=== PATIENT | female | born 1985 | race Caucasian/White ===

== ENCOUNTER → 2017-07-25 15:09 | Outpatient (CLI) | payer MEDICAID, SELFPAY ==
[2017-07-25 16:49] LABS: Hemoglobin A1c 4.8 % (4.2-6.3)
[2017-07-25 16:50] LABS: Pregnancy, Serum, hCG Quali. NEGATIVE Negative (0-9 Nonpreg)
[2017-07-25 16:54] LABS: Free T3 2.5 pg/mL (2.18-3.98); Luteinizing Hormone 4.8 mIU/mL; Prolactin 2.2 ng/mL; T4 Free Direct 0.83 ng/dL (0.76-1.46); Thyroid Stim Hormone (TSH) 1.29 uIU/mL (0.358-3.74)
== END ==
PROVIDERS: Visit Provider Obstetrics & Gynecology
DX: N92.6 Irregular menstruation, unspecified (principal)
CPT/HCPCS: 36415; 83001; 83002; 83036; 84146; 84439; 84443; 84481; 84703

== ENCOUNTER 2017-09-13 09:24 | Day surgery (SDC) | payer MEDICAID, SELFPAY ==
[2017-09-07 11:34] LABS: Partial Thromboplast Time 32.1 Seconds (24.1-36.2); Prothrombin Time (Protime)PT. 13.2 SECONDS (11.7-14.9)
[2017-09-07 11:39] LABS: Hematocrit 37.4 % (37-47); Hemoglobin 13.2 g/dl (12.0-15.0); Mean Corp Hgb Conc 35.3 g/gl (32-36); Mean Corpuscular Volume 90.8 fL (81-99); Mean Platelet Vol. 9.5 fl (6.2-12.0); Platelet Count 309 K/mm3 (150-450); RBC Distribution Width CV 12.4 % (11.6-14.6); RBC Distribution Width SD 40.8 fl (35.1-43.9); Red Blood Count 4.12 M/mm3 (4.2-5.4); Scan Indicated on CBC? Y/N NO; White Blood Count 9.4 K/mm3 (4.4-11.0)
[2017-09-07 11:54] LABS: Pregnancy, Serum, hCG Quali. NEGATIVE Negative (0-9 Nonpreg)
[2017-09-13 09:49] LABS: Internal QC Validated? YES +Cl - CLEAR BKGD; Pregnancy, Urine Negative Negative
[2017-09-13 09:51] VITALS: BP 113/59; PULSE 67; RESP 16; TEMP 36.4; O2SAT 97; BMI 37.4
--- NOTE | 2017-09-13 11:05 | FALS_PTH ---
PATIENT: ALO CAMACHO LOC: [facility] [place][id number] AGE/SX: 31/F ROOM: RE09/13/[address]: Dr. Bandar Eden MD : [id number] BED: DIS: 09/13/2017 SPEC #: [id number] RECD: 09/13/17 12:35 STATUS: SOFI [place] #: [id number] FRANCISCO: 09/13/17 11:[address]: Bandar Eden DEPT: SURGICAL PATHOLOGY RECD BY: Chaka Murphy ENTERED: 09/13/17 13:18 SP TYPE: FALL TUBES OTHR DR: Dr. Justin Black MD Tissues: Fallopian tube Procedures: Surgery Specimen Level II HEADER OPERATION: Laparoscopic salpingectomy PRE-OP DIAGNOSIS: Sterilization request TISSUE SUBMITTED: Bilateral fallopian tubes MICROSCOPIC DIAGNOSIS Right fallopian tube, salpingectomy: Benign paratubal cysts. Left fallopian tube, salpingectomy: Complete cross-sections of fallopian tube with benign paratubal cysts. AM:primo 09/14/17 MICROSCOPIC DESCRIPTION Slides are reviewed. GROSS DESCRIPTION Received is one container labeled with the patient's name and designated bilateral fallopian tubes. The specimen consists of two fallopian tubes with an average length of 7.5 cm. Both fallopian tubes have normal fimbriated ends. No mass lesions are identified. Interior Design Director sections from both fallopian tubes are submitted in two cassettes. / AM:primo 09/13/17 TC:5 CPT: 01455 x2
--- NOTE | 2017-09-13 11:05 | PCM.DC ---
You will use the following diet at home:: No restrictions Your food should be the consistency of: Regular Discharge Activity: Return to Normal Activity, May Drive, May not drive while taking narcotic pain medications., May Shower Return to work on:: 09/22/17 May shower in (days): 0 May resume sexual activity in: 3 weeks Call your doctor if your incision/area has: Continuous Slow Oozing, Sudden Increased Bleeding, Increased Pain/ Swelling, Increased Redness, Foul Smelling Discharge, Swelling at the incision site Call your doctor if you observe: Fever of 101 or Higher, Inability to urinate, Inability to have a bowel movement, Using more than one pad per hour, Shortness of breath, Chest pain, Calf discomfort, Uncontrolled pain Remove Dressing in (days):: 2 Allergies/Adverse Reactions: Allergies morphine Allergy (Verified 09/08/17 08:31) Anaphylaxis Medications to take at Discharge buPROPion SR [Wellbutrin Sr] 450 mg PO DAILY 07/22/16 Ibuprofen [Motrin] 800 mg PO TID PRN PRN #30 tab 09/13/17 Oxycodone [Oxyir] 5 mg PO Q4H PRN PRN 7 Days #20 tab 09/13/17 The following prescriptions were given: Oxycodone [Oxyir] 5 mg PO Q4H PRN PRN 7 Days #20 tab PRN Reason: Severe Pain (6-10/10) Ibuprofen [Motrin] 800 mg PO TID PRN PRN #30 tab PRN Reason: pain or cramping Primary Care Physician: Justin Black [Primary Care Provider] - Please Follow Up With: Bandar Eden MD When: one week Proposed Discharge Date: 09/13/17
--- NOTE | 2017-09-13 11:24 | OP.PCM_ITS ---
Problem List (1) Request for sterilization Status: Chronic Report of Operation Date of Procedure: 09/13/17 Pre-Operative Diagnosis: Request for Permanent Sterilization Post-Operative Diagnosis: Same Surgery/Procedure Performed:: Laparoscopic Bilateral Salpingectomy Description of Surgical Findings:: Normal appearing uterus, ovaries, and fallopian tubes. Normal appearing liver and stomach. faculty neuropsychologist: Timmy Franks Type of Anesthesia:: General Anesthesiologist: Dioni Quintana Special Medications: none Specimen's removed: Right and Left Fallopian Tubes Drains: none Estimated Blood Loss (mL): minimal Fluids Replaced: 600cc LR Description of Procedure: Lola was taken to the OR with IV running. She was given two grams of Cefotetan intravenously prior to the start of the procedure. General anesthesia was then introduced without complication. She was the prepped and draped in the dorsal lithotomy position. SCDs were in place and operational throughout the case. A red rubber catheter was then used to drain the bladder. A uterine manipulator was then placed. Attention was then directed to the abdomen. A 5mm vertical incision was made in the lower base of the umbilicus. The underlying subcutaneous tissue was then bluntly dissected down to the level of the fascia. The abdominal wall was then elevated and a Veress needle was placed through the umbilical defect into the abdominal cavity. The abdomen was then inflated with CO2 gas to a pressure of 15 Torr. The Veress needle was then removed and replaced with a 5mm trocar and sleeve. The trocar was removed and replaced with the laparoscope. Findings were as mentioned above. Two lateral 5mm side ports were placed. Each was placed lateral to the inferior epigastric vessels about 4 cm below the level of the umbilicus. These were placed with direct visualization with the laparoscope and hemostasis was excellent after port placement. The left fallopian was grasped at the fimbriated end elevated and the mesosalpinx dissected with the Ligasure device from mohinder fimbriated end to the cornua of the uterus. The tube was then amputated at the cornua. The tube was brought through the lateral port site. In a similar fashion the right fallopian tube was dissected and removed. The pedicle sites were hemostatic. The ports were removed. The skin incisions were closed with 4-0 Monocryl then injected superficially with 0.25% Marcaine. All instruments were then removed from the vagina. The pateint was the reversed from anesthesia and taken to the recovery room in stable condition. Sponge, lap, and needle counts were correct. Grafts/Implants Used: none - Complications none - Admit VTE Documentation VTE Present on Admission: No VTE Mechan Device Prophylaxis: SCD's VTE Pharm Prophylaxis ordered?: No
[2017-09-13] MEDS: Bupivacaine 0.25% 30 ML Vial (11:48)
[2017-09-13 12:06] VITALS: BP 113/59; BP 117/82; PULSE 80; RESP 18; TEMP 36; O2SAT 96
[2017-09-13 12:15] VITALS: BP 113/59; BP 118/81; PULSE 70; RESP 16; O2SAT 95
[2017-09-13] MEDS: Ketorolac 30 MG/ML Syringe IV (12:25)
[2017-09-13 12:30] VITALS: BP 110/73; BP 113/59; PULSE 73; RESP 16; O2SAT 95
[2017-09-13 12:46] VITALS: BP 110/73; BP 113/59; PULSE 64; RESP 16; TEMP 36.1; O2SAT 95
[2017-09-13 13:51] VITALS: BP 113/59
== END 2017-09-13 14:01 | disposition home or self-care (01) ==
LOC: SDC 09:25 → AC 09:26
PROVIDERS: Anesthesiology; Family Provider Family Medicine; PCP Family Medicine; Visit Provider Obstetrics & Gynecology
PROC: (CPT 58661; principal; 2017-09-13 10:50)
DX: Z30.2 Encounter for sterilization (principal); N83.8 Other noninflammatory disorders of ovary, fallopian tube and broad ligament; F32.9 Major depressive disorder, single episode, unspecified; K21.9 Gastro-esophageal reflux disease without esophagitis; F17.200 Nicotine dependence, unspecified, uncomplicated; Z79.899 Other long term (current) drug therapy
CPT/HCPCS: 00840; 58661; 36415; 81025; 84703; 85027; 85610; 85730; 86850; 86900; 88302; J7120; J2405

== ENCOUNTER → 2020-02-13 13:03 | Outpatient (CLI) | payer MEDICAID, SELFPAY ==
[2020-02-13 13:08] LABS: Bacteria 0 SEEN /hpf (None Seen); Mucous, Urine 0 SEEN /hpf (<or=2+); Red Blood Cells-Urine 0 SEEN /hpf (0-5); White Blood Cells 0 SEEN /hpf (0-5)
[2020-02-13 13:47] LABS: Color, Urine Straw (Yellow); Glucose, Dipstick Normal (Normal); Ketone-Dipstick Negative (Negative); Leukocyte Esterase-Dipstick 25 /ul (Negative); Nitrite-Dipstick Negative (Negative); Occult Blood-Urine Negative /ul (Negative); Protein-Dipstick Negative (Negative); Specific Gravity, Urine 1.005 (1.002-1.030); Urine Bilirubin Dipstick Negative (Negative); Urine Clarity Clear (Clear); Urine Urobilinogen Normal (Normal)
[2020-02-13 13:52] LABS: Squamous Epithelial Cells - UA 0-5 SEEN /hpf (5-10)
== END ==
PROVIDERS: PCP Family Medicine; Visit Provider Obstetrics & Gynecology
DX: R10.2 Pelvic and perineal pain (principal); N39.0 Urinary tract infection, site not specified
CPT/HCPCS: 81001; 87086; 87088